=== PATIENT | male | born 1960 | race Caucasian/White ===

== ENCOUNTER 2017-04-08 15:18 | Emergency (ER) | payer OTHER ==
[~2017-04-08] VITALS: Ht 180.3 cm; Wt 67.8 kg
[2017-04-08 15:25] VITALS: BP 128/88; PULSE 95; RESP 16; TEMP 98.1; O2SAT 97
[2017-04-08] MEDS ORDERED: TRAZ1TAB14 PO (16:24)
[2017-04-08] MEDS ORDERED: AMBI6.25 PO (16:24)
[2017-04-08] MEDS ORDERED: OXYC1TAB35 PO (16:24)
[2017-04-08] MEDS ORDERED: DEXAMETHASONE SOD PHOS 20 MG/5 ML VIAL IV PUSH ONE (16:30)
[2017-04-08] MEDS ORDERED: LORazepam 2 MG/ML VIAL IV PUSH ONE (16:30)
--- NOTE | 2017-04-08 16:55 | PD ---
HPI . Back pain Chief Complaint: Back/ Neck Pain or Injury Time Seen by Provider: 16:09 Travel History International Travel<30 days: No Contact w/Intl Traveler<30days: No Traveled to known affect area: No History of Present Illness HPI This patient presents with a chief complaint of low back pain radiating down the left leg. Onset was last night. This started when he twisted. He had the acute onset of pain with the twisting motion. Pain is rated 8/10 and is exacerbated by certain positions and movements. Patient reports chronic problems with his back. He states that he is followed at [facility] for his various medical problems. He reports that he is due to have an MRI of his back or future. He states that he has never had pain running down his leg before. He denies any saddle anesthesia. He denies any bowel or bladder incontinence. No fever. The patient goes on to say that he is chronically prescribed OxyContin content or oxycodone. He states that he did not bring it with him from [place]. He takes that on a when necessary basis. He further states that both doses of narcotics causes him to have an alteration in his mood. He states that he does well with one dose of Dilaudid. PFSH Past Medical History High Cholesterol: Yes Diminished Hearing: No Musculoskeletal: Yes (chronic back pain with pain management) Immunizations Current: Yes Tetanus Vaccination: < 5 Years Influenza Vaccination: Yes Past Surgical History Abdominal Surgery: Yes (vicente plication hernia) Eye Surgery: Yes (corneal transplant) Other Surgery: Yes (rhinoplasty cosmetic) Social History Alcohol Use: No Tobacco Use: No Substance Use: No Allergies-Medications (Allergen,Severity, Reaction): Coded Allergies: Penicillins (Verified Allergy, Unknown, 04/08/17) butorphanol (Verified Allergy, Unknown, 04/08/17) cephalexin (Verified Allergy, Unknown, 04/08/17) nalbuphine (Verified Allergy, Unknown, 04/08/17) tetracycline (Verified Allergy, Unknown, 04/08/17) Reported Meds & Prescriptions Reported Meds & Active Scripts Active Reported Trazodone (Trazodone HCl) 150 Mg Tablet 150 Mg PO HS Oxycodone-Acetaminophen 7.5-325 mg Tab 1 Tab PO Q4H PRN Ambien CR (Zolpidem Tartrate) 6.25 Mg Tab 6.25 Mg PO HS PRN Review of Systems Except as stated in HPI: all other systems reviewed are Neg General / Constitutional: No: Fever, Chills Gastrointestinal: No: Nausea, Vomiting Genitourinary: No: Incontinence Musculoskeletal: Positive: Myalgias, Limited ROM, Other (left leg pain) Neurologic: No: Weakness, Paresthesia Physical Exam Narrative GENERAL: Awake and alert and in no acute distress. He is sitting on the stretcher leaning to his right. SKIN: Warm and dry. He has some skin changes on both his hands and feet compatible with vascular disease. The skin color is jelani and it is a little touch. HEAD: Normocephalic/atraumatic. EYES: Pupils are equal. Extraocular movements are intact. NECK: Normal range of motion. CARDIOVASCULAR: Regular rate and rhythm. RESPIRATORY: Nonlabored respirations. MUSCULOSKELETAL: Atraumatic. No tenderness to percussion of the lumbar spine. Straight leg raise on the left is positive. Straight leg raise on the right is negative. NEUROLOGICAL: Nonfocal. PSYCHIATRIC: Appropriate mood and affect. Data Data Last Documented VS Vital Signs Date Time Temp Pulse Resp B/P (MAP) Pulse Ox O2 Delivery O2 Flow Rate FiO2 04/08/17 15:25 98.1 95 16 128/88 (101) 97 Orders Orders Mri L Spine W/O Contrast (04/08/17 16:24) Drug Screen, Random Urine (04/08/17 16:24) ^ Saline Lock (04/08/17 16:24) Dexamethasone Inj (Decadron Inj) (04/08/17 16:30) Lorazepam Inj (Ativan Inj) (04/08/17 16:30) Hydromorphone Pf Inj (Dilaudid Pf Inj) (04/08/17 19:15) Labs Laboratory Tests Test 04/08/17 16:50 Urine Opiates Screen POS Urine Barbiturates Screen POS Urine Amphetamines Screen NEG Urine Benzodiazepines Screen NEG Urine Cocaine Screen NEG Urine Cannabinoids Screen NEG MDM Medical Decision Making Medical Screen Exam Complete: Yes Emergency Medical Condition: Yes Differential Diagnosis Differential diagnosis of leg pain includes but is not limited to lumbar radiculopathy, arthritis, myalgias, DVT, ruptured Ortiz's cyst. Narrative Course Patient presents with acute low back pain radiating to the left leg. Started when he twisted last night. He denies any previous radiculopathy. I am a bit concerned about his chronic narcotic use as well as his request for Dilaudid. I have pulled him up in [place] and he has not had any narcotic prescriptions filled within the last year in our state. However, his permanent address is in [place]. I have ordered an MRI of his back. I will treat him with Decadron and Ativan initially. I have asked for a drug screen. Drug screen is positive for opiates and barbiturates. He has an opiate on his medication list but states that he does not remember the last time he took it. He does not have a barbiturate on his medication list. MRI: 1. Large left paracentral extradural soft tissue density extending from the L5- S1 level superiorly which effaces the left anterolateral aspect of the thecal sac and appears to displace the left S1 nerve root posteriorly and likely represents an extruded/sequestered disc fragment. Outpatient MRI with contrast may be helpful to rule out enhancing mass rather than extruded/sequestered disc fragment if clinically indicated. 2. Severe left neural foraminal narrowing and moderate right neural foraminal narrowing at L4-5. 3. Mild spinal stenosis and moderate bilateral foraminal narrowing at L3-4. 4. Mild spinal stenosis and mild bilateral foraminal narrowing at L2-3. 5. Minimal spinal stenosis and bilateral foraminal narrowing at L1-2. 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 I will discharge him on steroids, [place] and Flexeril. Diagnosis Primary Impression: Acute sciatica Patient Instructions: General Instructions, Narcotic given in the ED, Sciatica (DC) Med/Other Pt SpecificInfo: Prescription(s) given Scripts Cyclobenzaprine (Flexeril) 10 Mg Tab 10 MG PO TID for Muscle Spasm, #30 TAB 0 Refills Prov: Becky Bah MD 04/08/17 Hydrocodone-Acetaminophen ([place]) 5 Mg-325 Mg Tab 1 TAB PO Q4H Y for PAIN, #12 TAB 0 Refills Prov: Becky Bah MD 04/08/17 Prednisone (48) 10 mg tab Dose Pack (Prednisone (48) 10 mg tab Dose Pack) 10 Mg Dspk 10 MG PO DIRECTED for Inflammation, #1 DSPK 0 Refills Prov: Becky Bah MD 04/08/17 Disposition: 01 DISCHARGE HOME Condition: Stable Becky Bah MD Apr 08, 2017 16:55
--- NOTE | 2017-04-08 18:56 | RADRPT ---
EXAM DATE/TIME: 04/08/2017 17:46 [facility] COMPARISON: No previous studies available for comparison. INDICATIONS : Myelopathy. Lower back pain radiating down left leg. Pain began after twisting movement. MEDICAL HISTORY : Hypercholesterolemia. SURGICAL HISTORY : Corneal transplant. Rhinoplasty. Serge fundoplication. ENCOUNTER: Initial ACUITY: 2 day PAIN SCORE: 8/10 LOCATION: Lower back. TECHNIQUE: Multiplanar multisequence MRI of the lumbar spine was performed without contrast. FINDINGS: There is normal height and signal intensity of the lumbar vertebral bodies. Diffuse degenerative disc disease is noted at all levels within the lumbar spine. There is a large left paracentral extradural soft tissue density at the L5 level which likely represent an extruded/sequestered disc fragment ext ending superiorly from the L5-S1 level. This effaces the left anterolateral aspect of the thecal sac and appears to displace the left S1 nerve root posteriorly. Clinical correlation is recommended. Outp atient MRI with contrast may be helpful to rule out enhancing mass rather than extruded/sequestered d isc fragment if clinically indicated. T12-L1: No significant spinal stenosis, disc bulge or herniation is noted. The bilateral neuroforamina are pa tent. The facet joints and ligaments are unremarkable. L1-L2: Minimal circumferential stenosis and bilateral foraminal narrowing is noted secondary to mild diffuse disc bulge, facet joint hypertrophy and ligamentous laxity. No focal disc herniation is noted. L2-L3: Mild circumferential spondylosis and mild foraminal narrowing is noted secondary to mild diffuse disc bulge, facet joint hypertrophy and ligaments laxity. No focal disc herniation is noted. L3-L4: Mild circumferential spinal stenosis and moderate bilateral foraminal narrowing is noted secondary to diffuse disc bulge, facet joint hypertrophy and ligaments laxity. No focal disc herniation is noted. L4-L5: There is no significant spinal stenosis. There is a mild diffuse asymmetric disc bulge to the left as well as facet joint hypertrophy and ligaments laxity bilaterally. Severe left neural foraminal narro wing is noted. Moderate right neuroforaminal narrowing is noted. No focal disc herniation is noted. L5-S1: There is a large left paracentral extradural soft tissue density extending from the L5-S1 level super iorly which effaces the left anterolateral aspect of the thecal sac and appears to displace the left S1 nerve root posteriorly and likely represents an extruded/sequestered disc fragment. Outpatient MRI with contrast may be helpful to rule out enhancing mass rather than extruded/sequestered disc fragme nt if clinically indicated. No spinal stenosis is noted at this level. Facet joint hypertrophy is not ed bilaterally. CONCLUSION: 1. Large left paracentral extradural soft tissue density extending from the L5-S1 level superiorly wh ich effaces the left anterolateral aspect of the thecal sac and appears to displace the left S1 nerve root posteriorly and likely represents an extruded/sequestered disc fragment. Outpatient MRI with co ntrast may be helpful to rule out enhancing mass rather than extruded/sequestered disc fragment if cl inically indicated. 2. Severe left neural foraminal narrowing and moderate right neural foraminal narrowing at L4-5. 3. Mild spinal stenosis and moderate bilateral foraminal narrowing at L3-4. 4. Mild spinal stenosis and mild bilateral foraminal narrowing at L2-3. 5. Minimal spinal stenosis and bilateral foraminal narrowing at L1-2. Gustavo Colunga MD on April 08, 2017 at 18:41 Board Certified Radiologist. This report was verified electronically.
[2017-04-08] MEDS ORDERED: PRED10PA2 PO (19:07)
[2017-04-08] MEDS ORDERED: NORC5TAB PO (19:07)
[2017-04-08] MEDS ORDERED: CYCL10TA PO (19:07)
[2017-04-08] MEDS ORDERED: HYDROmorphone HCL PF 2 MG/ML VIAL IV PUSH ONE (19:15)
== END 2017-04-08 19:43 | disposition home or self-care (01) ==
LOC: PHEFT 15:18
DX: M54.42 Lumbago with sciatica, left side (principal); G89.29 Other chronic pain
CPT/HCPCS: 72148; 80307; 96374; 96375; 99285; J1100; J1170; J2060